=== PATIENT | male | born 1985 | race Caucasian/White ===

== ENCOUNTER 2017-01-07 21:26 | Emergency (ER) | payer SELFPAY ==
[2017-01-07 21:43] VITALS: BP 123/85; PULSE 73; RESP 16; TEMP 97.9; O2SAT 98
--- NOTE | 2017-01-07 22:13 | EDPHY ---
H & P Time Seen by Provider: 01/07/17 21:50 HPI/ROS: CHIEF COMPLAINT: New onset genital lesion HISTORY OF PRESENT ILLNESS: 31-year-old male arrives via private vehicle requesting evaluation of single lesion to the ventral aspect of his penis and the right hemiscrotum. These are nontender. They have been present for 1-2 days. Non weeping, nonvesicular. He is concerned about herpes . Notes that he was tested in July 2016 for multiple STDs, had negative testing including negative HSV serology. No urethral discharge. No urinary abnormality. No trauma. Multiple female sexual partners, some protected , some unprotected. No male-male sexual activity. PHYSICAL EXAM (Prior to examination, patient consented to physical exam, hands were washed and my usual and customary physical exam procedures followed) 1) GENERAL: Well-developed, well-nourished, alert and oriented. Appears to be in no acute distress. 2) HEAD: Normocephalic 3) HEENT: sclera anicteric 4) LUNGS: Breathing comfortably. [5) : Circumcised, no urethral discharge. There is a single follicular erythematous nontender non vesicular lesion at the base of his penis on the ventral aspect. On the right hemiscrotum he has an area of irritation with no vesicles, no ulceration, no fetid odor, no drainage, no tenderness, no evidence of Margot's gangrene, no evidence of cellulitis. No weeping no tenderness. Perineum nontender , normal exam Smoking Status: Current every day smoker Constitutional: Initial Vital Signs Temperature (C) 36.6 C 01/07/17 21:40 Heart Rate 73 01/07/17 21:40 Respiratory Rate 16 01/07/17 21:40 Blood Pressure 123/85 H 01/07/17 21:40 O2 Sat (%) 98 01/07/17 21:40 O2 Delivery Mode Room Air Allergies/Adverse Reactions: No Known Allergies Allergy (Unverified 01/07/17 21:40) Home Medications: Medication Instructions Recorded NK [No Known Home Meds] 01/07/17 MDM/Departure - MDM ED Course/Re-evaluation: I evaluated the patient had a lengthy conversation with the patient. He is concerned that these lesions may be secondary to herpes, possible genital warts. On exam these lesions do not appear to be consistent with herpes or warts. However he has been informed that this cannot be fully ruled out. There is no vesicle or lesions that can be biopsied at this time. As my clinical suspicion for herpes genitalis is low at this time, I do not think that starting the patient on antivirals is appropriate; however, he has been informed that if he had herpes genitalis it is possible to pass this to others without being symptomatic. Recommend he use condoms in the future. - Depart Disposition: Home, Routine, Self-Care Clinical Impression: Folliculitis Condition: Good Instructions: Folliculitis (ED) Additional Instructions: Return to the ER if you develop tenderness, painful discharge from the penis, painful urination, rash or pain to your penis or scrotum or testicles or any other symptoms that concern you. Recommend you use a condom. Referrals: [facility],. [Clinic] - 01/10/17
== END 2017-01-07 22:29 | disposition home or self-care (01) ==
DX: L73.9 Follicular disorder, unspecified (principal); F17.200 Nicotine dependence, unspecified, uncomplicated

== ENCOUNTER 2017-02-28 15:34 | Emergency (ER) | payer MEDICAID ==
[2017-02-28 15:40] VITALS: TEMP 99
[2017-02-28] MEDS ORDERED: MAG HYDROX/AL HYDROX/SIMETH 30 ML UDCUP PO ONE (17:10)
[2017-02-28] MEDS ORDERED: LIDOCAINE 2% VISCOUS 15 ML UDCUP PO ONE (17:10)
[2017-02-28] MEDS ORDERED: NS 1,000 ML IV ONE (17:10)
[2017-02-28] MEDS ORDERED: FAMOTIDINE 20 MG/NACL 50 ML IV ONE (17:10)
[2017-02-28] MEDS ORDERED: HYOSCYAMINE SULFATE 0.125 MG TAB PO ONE (17:10)
--- NOTE | 2017-02-28 17:15 | EDPHY ---
General - History Smoking Status: Current every day smoker Narrative: CHIEF COMPLAINT: Vomiting blood, cough HISTORY OF PRESENT ILLNESS: Patient complains of 2 episodes vomiting today. These were earlier today. The 1st had some streaky blood in it while retching heavily. It was a painful vomiting episode. He vomited shortly after this with more blood and also wall retching. He has had some epigastric discomfort but no generalized pain. No fever. He has had a cough over the past 2 weeks he says was occasionally productive and other times dry. Some malaise and body aches. Subjective fever. He has no chest pain. No shortness of breath. No urinary complaints. No rash. No neck pain or stiffness. No headache. Went to an urgent care and they sent him here for higher level of care. He is concerned that he may have a peptic ulcer. He has no previous diagnosis of this. No other associated complaints or modifying factors. REVIEW OF SYSTEMS: Ten systems reviewed and are negative unless otherwise noted in the HPI PCP: None SPECIALISTS: None PAST MEDICAL HISTORY: Denies PAST SURGICAL HISTORY: None SOCIAL HISTORY: Daily smoker. Occasional. Occasional marijuana and mushroom use. Currently in transitional housing, moving [facility]. FAMILY HISTORY: Noncontributory EXAMINATION General Appearance: Alert, no distress Head: normocephalic, atraumatic Eyes: Pupils equal and round, no conjunctival pallor or injection ENT, Mouth: Mucous membranes moist. Uvula midline. Airway is widely patent. There is mild erythema of the posterior pharynx. No exudate. Neck: Normal inspection, supple, non-tender. Painless range of motion all planes. No meningismus or rigidity. Respiratory: Lungs are clear to auscultation. No wheezing, rhonchi or crackles Cardiovascular: Regular rate and rhythm. No murmur. Pulses intact distally symmetrically Gastrointestinal: Abdomen is soft and nontender. Bowel sounds symmetric in all 4 quadrants. No distention. No tympany. No guarding. Nonacute abdomen Neurological: A&O, nonfocal, strength is symmetric Skin: Warm and dry, no rash no petechiae purpura Extremities: Nontender, no pedal edema. Symmetric range of motion of the upper and lower extremities Psychiatric: Mood and affect normal DIFFERENTIAL DIAGNOSES: Including but not limited to gastritis, peptic ulcer, Sia-Miranda injury, viral illness, enteritis, colitis MDM: 5:10 p.m. Recent viral type illness with vomiting x2 today. The 1st episode real some streaky blood toward the end while retching. The 2nd episode revealed more bright red blood to him while retching. He has had no vomiting since. Does have mild abdominal discomfort. His vital signs are stable and he is in no acute distress. His abdominal exam is benign. I have ordered IV fluid, laboratory studies, IV Pepcid and GI cocktail pelvic I do not feel he warrants stat imaging at this time. He is in no acute distress per 6:15 p.m. Patient re-evaluated. Resting comfortably. Feeling better after medications and IV fluid. IV fluids still infusing. Laboratory studies thus far negative. No vomiting. 6:30 p.m. All laboratory studies are negative. I have re-evaluated the patient he continues to feel better. I have discussed with Dr. Szymanski so we are in agreement that the patient is stable for discharge home. I will trial him with p.o. challenge first. 6:50 p.m. Patient re-evaluated. He is tolerating liquids and crackers. He continues to feel well. I do not feel he warrants any further examination imaging here. Discharged home with short course of symptomatic medications. He has instructions to follow up with a new physician, and the information has been provided for him. He has ED precautions as discussed. Clear liquid diet and advance diet slowly as tolerated. He is comfortable this plan. He is discharged in stable condition. (Jaret Khan) Discussion: The patient was evaluated and managed by the Physician [employer] Adjuster/ Nurse Practitioner. I discussed the patient's presentation and course with the midlevel provider with them and agree with the evaluation. My co-signature indicates that I have reviewed this chart and I agree with the findings and plan of care as documented. I am the secondary supervising physician. (Eva Szymanski) - Objective Vital Signs: Initial Vital Signs Temperature (C) 37.2 C 02/28/17 15:38 Heart Rate 98 02/28/17 15:38 Respiratory Rate 18 02/28/17 15:38 Blood Pressure 108/64 02/28/17 15:38 O2 Sat (%) 98 02/28/17 15:38 O2 Delivery Mode Room Air Allergies/Adverse Reactions: No Known Allergies Allergy (Verified 02/28/17 15:37) Home Medications: Medication Instructions Recorded Famotidine [Pepcid 20 MG (*)] 20 mg PO BID #20 tab 02/28/17 Ondansetron Odt [Zofran Odt 4 mg 4 mg PO Q6 PRN #12 tab 02/28/17 (*)] Promethazine HCl [Phenergan 25mg 25 mg PO Q8 PRN #12 tab 02/28/17 (*)] Laboratory Results: Laboratory Results 02/28/17 17:25 02/28/17 17:25 Medications Given: Discontinued Medications Al Hydroxide/Mg Hydroxide (Maalox Susp) 30 ml PO ONCE ONE Stop: 02/28/17 17:11 Last Admin: 02/28/17 17:23 Dose: 30 ml Hyoscyamine Sulfate (Levsin, Hyomax-Sl) 0.25 mg PO ONCE ONE Stop: 02/28/17 17:11 Last Admin: 02/28/17 17:23 Dose: 0.25 mg Sodium Chloride (Ns) 1,000 mls @ 0 mls/hr IV EDNOW ONE; Wide Open PRN Reason: Protocol Stop: 02/28/17 17:11 Last Admin: 02/28/17 17:22 Dose: 1,000 mls Famotidine/Sodium Chloride (Pepcid 20 Mg (Premix)) 50 mls @ 200 mls/hr IV EDNOW ONE Stop: 02/28/17 17:24 Last Admin: 02/28/17 17:22 Dose: 50 mls Lidocaine (Lidocaine 2% Viscous) 15 ml PO ONCE ONE Stop: 02/28/17 17:11 Last Admin: 02/28/17 17:23 Dose: 15 ml Departure - Departure Disposition: Home, Routine, Self-Care Clinical Impression: Hematemesis with nausea, Sia-Miranda syndrome Condition: Good Instructions: Gastritis (ED), Sia-Miranda Syndrome (ED) Additional Instructions: 1. Clear liquid diet as discussed for toward a 48 hours 2. Medications as prescribed as 3. ED precautions as discussed 4. Contact [facility] or the on-call primary care physician, information has been provided Referrals: NONE *PRIMARY CARE P,. [Primary Care Provider] - As per Instructions Bishnu Almaguer MD [Medical Doctor] - As per Instructions [facility],. [Clinic] - As per Instructions Prescriptions: Famotidine [Pepcid 20 MG (*)] 20 mg PO BID #20 tab Ondansetron Odt [Zofran Odt 4 mg (*)] 4 mg PO Q6 PRN #12 tab PRN Reason: Nausea/Vomiting, Use 1st Promethazine HCl [Phenergan 25mg (*)] 25 mg PO Q8 PRN #12 tab PRN Reason: Nausea/Vomiting, Use 1st
[2017-02-28 17:37] LABS: % IMMATURE GRANULYOCYTES 0.3 % (0.0-1.1); ABSOLUTE IMMATURE GRANULOCYTES 0.02 10^3/uL (0.00-0.10); ADD DIFF? NO; ADD MORPH? NO; ADD SCAN? NO; ATYPICAL LYMPHOCYTE FLAG 10 (0-99); FRAGMENT RBC FLAG 0 (0-99); HEMATOCRIT 45.8 % (40.0-51.0); HEMOGLOBIN 16.9 g/dL (13.7-17.5); LEFT SHIFT FLG 0 (0-99); LIPEMIA HEMOLYSIS FLAG 90 (0-99); MEAN CELL HEMOGLOBIN 32.4 pg (27.9-34.1); MEAN CELL HEMOGLOBIN CONCENTR. 36.9 g/dL (32.4-36.7); MEAN CELL VOLUME 87.7 fL (81.5-99.8); MEAN PLATELET VOLUME 10.6 fL (8.7-11.7); PLATELET CLUMPS FLAG 0 (0-99); PLATELET COUNT 162 10^3/uL (150-400); RED BLOOD CELL COUNT 5.22 10^6/uL (4.40-6.38); RED CELL DISTRIBUTION WIDTH 11.1 % (11.5-15.2)
[2017-02-28 17:46] LABS: INR 1.03 (0.83-1.16); PROTIME(PATIENT) 13.4 SEC (12.0-15.0)
[2017-02-28 17:47] LABS: APTT 26.9 SEC (23.0-38.0)
[2017-02-28 17:51] LABS: ALANINE AMINOTRANSFERASE 47 IU/L (21-72); ALBUMIN 4.3 g/dL (3.5-5.0); ALKALINE PHOSPHATASE 54 IU/L (38-126); ANION GAP 10 mEq/L (8-16); ASPARTATE AMINOTRANSFERASE 22 IU/L (17-59); BILIRUBIN,TOTAL 0.9 mg/dL (0.1-1.4); BILIRUBIN-CONJUGATED 0.1 mg/dL (0.0-0.5); BILIRUBIN-UNCONJUGATED 0.8 mg/dL (0.0-1.1); CALCIUM 9.2 mg/dL (8.5-10.4); CARBON DIOXIDE 24 mEq/l (22-31); CHLORIDE 102 mEq/L (97-110); CREATININE 0.8 mg/dL (0.7-1.3); GLOMERULAR FILTRATION RATE > 60; GLUCOSE 86 mg/dL (70-100); POTASSIUM 4.1 mEq/L (3.5-5.2); SODIUM 136 mEq/L (134-144); TOTAL PROTEIN 6.7 g/dL (6.3-8.2)
[2017-02-28 19:42] VITALS: BP 115/70; PULSE 89; RESP 18; O2SAT 96
== END 2017-02-28 19:42 | disposition home or self-care (01) ==
DX: K22.6 Gastro-esophageal laceration-hemorrhage syndrome (principal); F17.200 Nicotine dependence, unspecified, uncomplicated; E86.9 Volume depletion, unspecified
CPT/HCPCS: 96365